=== PATIENT | female | born 1955 | race Caucasian/White ===

== ENCOUNTER 2017-12-03 13:13 | Emergency (ER) | payer OTHER ==
[~2017-12-03] VITALS: Ht 157.5 cm; Wt 70.6 kg
[~2017-12-03 13:13] MED LIST: ALBU8.5H8 INH; AMLO1TAB99 PO; CLON0.1T PO; DULO60CA7 PO; ESCI10TA10 PO; METO50TA82 PO
[2017-12-03] MEDS ORDERED: KETOROLAC 30 MG/1 ML IVPush ONE (13:30)
[2017-12-03] MEDS ORDERED: SODIUM CHLORIDE FLUSH 10ML SYR IVF ONE (13:30)
[2017-12-03] MEDS ORDERED: MORPHINE SULFATE 4 MG/ML, 1ML ONE ×2 (13:32→14:35)
[2017-12-03] MEDS ORDERED: KETOROLAC 30 MG/1 ML ONE (13:32)
[2017-12-03] MEDS: MORPHINE SULFATE 4 MG/ML, 1ML IVPush PRN ×2 (13:36→14:38)
[2017-12-03 13:54] LABS: BASOPHILS # (AUTO) 0.08 x10^3/uL (0-0.1); BASOPHILS % (AUTO) 1 % (0-1); EOSINOPHILS # (AUTO) 1.21 x10^3/uL (0-0.4); EOSINOPHILS % (AUTO) 15 % (1-7); LYMPHOCYTES % (AUTO) 31 % (22-44); MD NO; MEAN CORPUSCULAR HEMOGLOBIN 29.1 pg (27.0-34.8); MEAN CORPUSCULAR HGB CONC 33.6 g/dL (32.4-35.8); MEAN CORPUSCULAR VOLUME 86.7 fL (80-100); MEAN PLATELET VOLUME 9.1 fL (7.4-10.4); MONOCYTES # (AUTO) 0.62 x10^3/uL (0.2-0.8); MONOCYTES % (AUTO) 8 % (2-9); NEUTROPHILS % (AUTO) 46 % (42-75); PLATELET COUNT 367 x10^3/uL (130-400); RED BLOOD COUNT 5.21 x10^6/uL (3.82-5.3); RED CELL DISTRIBUTION WIDTH 14.4 % (9.6-15.2)
[2017-12-03 13:57] LABS: ALBUMIN 4.8 g/dL (3.4-5.0); ANION GAP 11 mmol/L (5-15); CALCIUM 9.6 mg/dL (8.5-10.1); CHLORIDE 106 mmol/L (98-107); CREATININE 0.92 mg/dL (0.55-1.02)
[2017-12-03 15:05] LABS: MICROSCOPIC AUTO
[2017-12-03 15:06] LABS: CULTURE INDICATED? YES
[2017-12-03 15:09] LABS: ALBUMIN 4.8 g/dL (3.4-5.0); BILIRUBIN, DIRECT 0.1 mg/dL (0.1-0.2)
[2017-12-03 15:13] LABS: BILIRUBIN,INDIRECT 0.7 mg/dL (0.0-2.0); BILIRUBIN,TOTAL 0.8 mg/dL (0.2-1.0); TOTAL PROTEIN 8.5 g/dL (6.4-8.2)
[2017-12-03] MEDS ORDERED: CYCLOBENZAPRINE 10 MG TABLET PO ONE (16:00)
[2017-12-03] MEDS ORDERED: CYCLOBENZAPRINE 10 MG TABLET ONE (16:25)
[2017-12-03 16:27] VITALS: BP 148/85
== END 2017-12-03 17:05 | disposition home or self-care (01) ==
LOC: ED 14:38
DX: M54.6 Pain in thoracic spine (principal); R10.9 Unspecified abdominal pain; I10 Essential (primary) hypertension; J45.909 Unspecified asthma, uncomplicated; Z90.49 Acquired absence of other specified parts of digestive tract; Z88.2 Allergy status to sulfonamides; Z87.442 Personal history of urinary calculi
CPT/HCPCS: 36415; 74176; 80048; 80076; 81001; 82040; 83690; 85025; 87086; 96374; 96375; 96376; 99285; J1885

== ENCOUNTER 2018-02-20 13:18 | Inpatient (IN) | payer OTHER ==
[~2018-02-20] VITALS: Ht 157.5 cm; Wt 67.1 kg
[~2018-02-20 13:18] MED LIST changes: -CLON0.1T PO; +CLON0.1T22 PO
[2018-02-20] MEDS ORDERED: FLUT1AER PO (13:42)
[2018-02-20] MEDS ORDERED: DULO30CA2 PO (13:42)
[2018-02-20] MEDS ORDERED: AMLO1CAP15 PO (13:42)
[2018-02-20] MEDS ORDERED: MORPHINE SULFATE 4 MG/ML, 1ML ONE ×2 (13:53→14:12)
[2018-02-20] MEDS: MORPHINE SULFATE 4 MG/ML, 1ML IVPush PRN ×2 (13:56→14:18)
[2018-02-20] MEDS ORDERED: SODIUM CHLORIDE FLUSH 10ML SYR IVF ONE (14:00)
[2018-02-20 14:18] LABS: BASOPHILS # (AUTO) 0.11 x10^3/uL (0-0.1); BASOPHILS % (AUTO) 2 % (0-1); EOSINOPHILS # (AUTO) 0.85 x10^3/uL (0-0.4); EOSINOPHILS % (AUTO) 15 % (1-7); LYMPHOCYTES # (AUTO) 1.74 x10^3/uL (1-3.4); LYMPHOCYTES % (AUTO) 30 % (22-44); MD NO; MEAN CORPUSCULAR HEMOGLOBIN 28.9 pg (27.0-34.8); MEAN CORPUSCULAR HGB CONC 33.6 g/dL (32.4-35.8); MEAN PLATELET VOLUME 9.1 fL (7.4-10.4); MONOCYTES # (AUTO) 0.38 x10^3/uL (0.2-0.8); MONOCYTES % (AUTO) 7 % (2-9); NEUTROPHILS # (AUTO) 2.65 x10^3/uL (1.8-6.8); NEUTROPHILS % (AUTO) 46 % (42-75); PLATELET COUNT 300 x10^3/uL (130-400); RED BLOOD COUNT 5.45 x10^6/uL (3.82-5.3); RED CELL DISTRIBUTION WIDTH 13.8 % (9.6-15.2)
[2018-02-20 14:21] LABS: INTERNATIONAL NORMALIZED RATIO 0.99 (0.93-1.1); PROTHROMBIN TIME 10.5 Seconds (9.6-11.5)
[2018-02-20 14:23] LABS: ALANINE AMINOTRANSFERASE 26 U/L (12-78); ALBUMIN 4.5 g/dL (3.4-5.0); ANION GAP 13 mmol/L (5-15); CALCIUM 9.3 mg/dL (8.5-10.1); CHLORIDE 110 mmol/L (98-107); CREATININE 0.88 mg/dL (0.55-1.02)
[2018-02-20] MEDS ORDERED: CEFTRIAXONE PMX 1GM/50ML 50 ML ONE (14:24)
[2018-02-20 14:27] LABS: ALKALINE PHOSPHATASE 84 U/L (45-117); BILIRUBIN,TOTAL 0.5 mg/dL (0.2-1.0); TOTAL PROTEIN 7.9 g/dL (6.4-8.2); TROPONIN I < 0.015 ng/mL (0.000-0.045)
[2018-02-20] MEDS ORDERED: AZITHROMYCIN 500 MG in SODIUM CHLORIDE 0.9% 250 ML IV ONE (14:30)
[2018-02-20] MEDS ORDERED: CEFTRIAXONE PMX 1GM/50ML 50 ML IV ONE (14:30)
[2018-02-20] MEDS ORDERED: morphine SULFATE 10 MG/ML, 1ML IVPush ONE (15:00)
[2018-02-20] MEDS ORDERED: NS + 20MEQ KCL 1,000 ML IV SCH (15:06)
[2018-02-20] MEDS ORDERED: LORazepam 1MG TABLET ONE (15:24)
[2018-02-20] MEDS ORDERED: LORazepam 1MG TABLET PO ONE (15:30)
[2018-02-20] MEDS ORDERED: ONDANSETRON 2MG/ML, 2ML IVPush PRN (15:30)
[2018-02-20] MEDS ORDERED: DOCUSATE 100 MG CAPSULE PO PRN (15:30)
[2018-02-20] MEDS ORDERED: POLYETHYLENE GLYCOL 17 GM PACKET PO PRN (15:30)
[2018-02-20] MEDS ORDERED: BUDESONIDE 0.5 MG/2 ML INHA HHN SCH (16:30)
[2018-02-20] MEDS ORDERED: ALBUTEROL SULFATE 2.5 MG/3 ML HHN PRN (16:30)
[2018-02-20] MEDS ORDERED: ALBUTEROL SULFATE 2.5 MG/3 ML HHN SCH (16:30)
[2018-02-20 16:52] VITALS: BP 116/74
[2018-02-20] MEDS: IBUPROFEN 600 MG TABLET PO SCH ×2 (17:26→21:05)
[2018-02-20] MEDS ORDERED: ALBUTEROL SULFATE 2.5 MG/3 ML NPPB PRN (17:30)
[2018-02-20 18:53] VITALS: BP 142/88
[2018-02-20] MEDS: BUDESONIDE 0.5 MG/2 ML INHA NPPB SCH (19:47)
[2018-02-20] MEDS: HYDROcodone/APAP 5/325 TABLET PO PRN (21:05)
[2018-02-21] MEDS: HYDROcodone/APAP 5/325 TABLET PO PRN ×5 (01:40→23:59)
[2018-02-21 01:48] VITALS: BP 108/71
[2018-02-21] MEDS: BUDESONIDE 0.5 MG/2 ML INHA NPPB SCH ×2 (06:59→20:31)
[2018-02-21 07:13] VITALS: BP 122/71
[2018-02-21] MEDS: DULOXETINE 30 MG CAPSULE.DR PO SCH (07:44)
[2018-02-21] MEDS: SENNA/DOCUSATE TABLET PO SCH (07:44)
[2018-02-21] MEDS: BENAZEPRIL 20 MG TABLET PO SCH (07:44)
[2018-02-21] MEDS: AMLODIPINE 10 MG TAB PO SCH (07:44)
[2018-02-21] MEDS: IBUPROFEN 600 MG TABLET PO SCH ×3 (07:44→19:47)
[2018-02-21] MEDS: METOPROLOL TARTRATE 50 MG TABLET PO SCH (07:48)
[2018-02-21] MEDS ORDERED: FLUTICASONE/VILANTEROL 100-25MCG/INH INH SCH (09:00)
[2018-02-21] MEDS ORDERED: OMNIPAQUE 350 MG/ML, 100ML BOTTLE ONE (10:18)
[2018-02-21] MEDS: GUAIFENESIN/COD200MG-20MG/10ML LIQUID PO PRN ×2 (12:46→22:21)
[2018-02-21 13:52] VITALS: BP 131/82
[2018-02-21] MEDS ORDERED: CEFTRIAXONE PMX 1GM/50ML 50 ML IV SCH (14:30)
[2018-02-21 14:39] LABS: TROPONIN I < 0.015 ng/mL (0.000-0.045)
[2018-02-21] MEDS ORDERED: AZITHROMYCIN 500 MG in SODIUM CHLORIDE 0.9% 250 ML IV SCH (15:30)
[2018-02-21 19:13] VITALS: BP 105/69
[2018-02-22 01:20] VITALS: BP 115/70
[2018-02-22 05:41] LABS: HCT (SEDRATE) 37.8 % (34.6-47.8)
[2018-02-22] MEDS ORDERED: CEFD300C37 PO (08:35)
[2018-02-22] MEDS: SENNA/DOCUSATE TABLET PO SCH (09:00)
[2018-02-22] MEDS ORDERED: CEFDINIR 300 MG CAPSULE PO SCH (09:00)
[2018-02-22] MEDS: METOPROLOL TARTRATE 50 MG TABLET PO SCH (09:04)
[2018-02-22] MEDS: IBUPROFEN 600 MG TABLET PO SCH (09:04)
[2018-02-22] MEDS: BENAZEPRIL 20 MG TABLET PO SCH (09:04)
[2018-02-22] MEDS: AMLODIPINE 10 MG TAB PO SCH (09:04)
[2018-02-22] MEDS: DULOXETINE 30 MG CAPSULE.DR PO SCH (09:04)
[2018-02-22 09:36] VITALS: BP 125/79
[2018-02-22] MEDS: BUDESONIDE 0.5 MG/2 ML INHA NPPB SCH (09:46)
== END 2018-02-22 12:52 | disposition home or self-care (01) | DRG 194 ==
LOC: ED 14:31 → SUATTDRO 14:54 → EDIP 15:06 → 3NE 15:58
PROVIDERS: ADMIT Family Medicine; ATTEND Internal Medicine
DX: J18.1 Lobar pneumonia, unspecified organism (principal); J45.901 Unspecified asthma with (acute) exacerbation; T17.890A Other foreign object in other parts of respiratory tract causing asphyxiation, initial encounter; F32.9 Major depressive disorder, single episode, unspecified; F41.1 Generalized anxiety disorder; I10 Essential (primary) hypertension; R09.1 Pleurisy; Z87.442 Personal history of urinary calculi; Z87.891 Personal history of nicotine dependence; Z90.49 Acquired absence of other specified parts of digestive tract; Z88.2 Allergy status to sulfonamides
CPT/HCPCS: 36415; 84145; 99285; J7613; J7626; 71045; 71275; 80053; 83605; 83880; 84443; 84484; 85025; 85610; 85651; 85730; 87040; 93005; 94640; 96374; 96375; 96376; G0378; J0456; J0696; J3480; Q9967; J2270; J7050

== ENCOUNTER 2018-03-09 18:32 | Emergency (ER) | payer OTHER ==
[~2018-03-09] VITALS: Ht 157.5 cm; Wt 66.1 kg
[~2018-03-09 18:32] MED LIST changes: +AMLO1CAP15 PO; +CEFD300C37 PO; +DULO30CA2 PO; +FLUT1AER PO
--- NOTE | 2018-03-09 19:11 | NUR ---
ASSUMED CARE OF PT FROM LOBBY AT THIS TIME.
[2018-03-09 19:28] LABS: MEAN CORPUSCULAR HEMOGLOBIN 29.5 pg (27.0-34.8); MEAN CORPUSCULAR VOLUME 86.7 fL (80-100); MEAN PLATELET VOLUME 8.9 fL (7.4-10.4); PLATELET COUNT 357 x10^3/uL (130-400); RED BLOOD COUNT 5.17 x10^6/uL (3.82-5.3); RED CELL DISTRIBUTION WIDTH 14.1 % (9.6-15.2)
[2018-03-09 19:39] LABS: ANION GAP 8 mmol/L (5-15); CALCIUM 9.3 mg/dL (8.5-10.1); CHLORIDE 105 mmol/L (98-107)
--- NOTE | 2018-03-09 19:40 | NUR ---
PT BIB P/V FOR CONTINUED COUGH AFTER BEING ADMITTED 2 WEEKS AGO FOR PNEUMONIA. PT REPORTTS SHE GOT BETTER THEN HAS PESISTENT RIGHT SIDED CP FOR LAST FEW DAYS WHEN COUGHING. PT SEEN BY DR. ASTUDILLO. WAITING FOR ORDERS.
[2018-03-09 19:47] LABS: ALANINE AMINOTRANSFERASE 29 U/L (12-78); ALKALINE PHOSPHATASE 95 U/L (45-117); BILIRUBIN,TOTAL 0.6 mg/dL (0.2-1.0); CREATININE 0.84 mg/dL (0.55-1.02); TOTAL PROTEIN 8.6 g/dL (6.4-8.2)
[2018-03-09 19:58] LABS: BASOPHILS # (AUTO) 0.06 x10^3/uL (0-0.1); BASOPHILS % (AUTO) 1 % (0-1); EOSINOPHILS % (AUTO) 21 % (1-7); LYMPHOCYTES % (AUTO) 22 % (22-44); MD SCAN; MONOCYTES # (AUTO) 0.55 x10^3/uL (0.2-0.8); MONOCYTES % (AUTO) 6 % (2-9); NEUTROPHILS # (AUTO) 4.54 x10^3/uL (1.8-6.8); NEUTROPHILS % (AUTO) 50 % (42-75)
[2018-03-09] MEDS ORDERED: KETOROLAC 30 MG/1 ML ONE (19:59)
[2018-03-09] MEDS ORDERED: KETOROLAC 30 MG/1 ML IM ONE (20:00)
--- NOTE | 2018-03-09 21:00 | NUR ---
PT REPORTS PAIN IS BETTER AFTER TORADOL.
[2018-03-09 21:10] VITALS: BP 121/89
== END 2018-03-09 21:14 | disposition home or self-care (01) ==
LOC: ED 19:35
DX: J18.9 Pneumonia, unspecified organism (principal); I10 Essential (primary) hypertension; J45.909 Unspecified asthma, uncomplicated
CPT/HCPCS: 36415; 80053; 85025; 93005; 96372; 99284; J1885

== ENCOUNTER 2018-06-18 11:51 | Emergency (ER) | payer OTHER ==
[~2018-06-18] VITALS: Ht 157.5 cm; Wt 64.0 kg
[2018-06-18 12:28] LABS: BASOPHILS # (AUTO) 0.05 x10^3/uL (0-0.1); BASOPHILS % (AUTO) 1 % (0-1); EOSINOPHILS # (AUTO) 1.11 x10^3/uL (0-0.4); EOSINOPHILS % (AUTO) 17 % (1-7); LYMPHOCYTES # (AUTO) 1.63 x10^3/uL (1-3.4); LYMPHOCYTES % (AUTO) 25 % (22-44); MD NO; MEAN CORPUSCULAR HEMOGLOBIN 29.7 pg (27.0-34.8); MEAN CORPUSCULAR VOLUME 87.5 fL (80-100); MEAN PLATELET VOLUME 8.5 fL (7.4-10.4); MONOCYTES # (AUTO) 0.43 x10^3/uL (0.2-0.8); MONOCYTES % (AUTO) 6 % (2-9); NEUTROPHILS # (AUTO) 3.47 x10^3/uL (1.8-6.8); NEUTROPHILS % (AUTO) 52 % (42-75); PLATELET COUNT 338 x10^3/uL (130-400); RED BLOOD COUNT 5.31 x10^6/uL (3.82-5.3); RED CELL DISTRIBUTION WIDTH 14.1 % (9.6-15.2)
[2018-06-18 12:33] LABS: ALBUMIN 4.8 g/dL (3.4-5.0); ANION GAP 7 mmol/L (5-15); CALCIUM 9.6 mg/dL (8.5-10.1); CHLORIDE 108 mmol/L (98-107)
[2018-06-18 12:38] LABS: CREATININE 0.76 mg/dL (0.55-1.02); TROPONIN I < 0.015 ng/mL (0.000-0.045)
--- NOTE | 2018-06-18 12:51 | NUR ---
Pt to 37 from lobby
[2018-06-18 13:05] VITALS: BP 146/87
--- NOTE | 2018-06-18 13:08 | NUR ---
PT PRESENTING TO ER FOR SOB X3 WEEKS, GENERALIZED FATIGUE AND PRODUCTIVE COUGH. CONNECTED TO ALL MONITORING, VSS. GRAHAM TO BEDSIDE FOR RECHECK AND TO UPDATE PT ON RAD AND LABS. CALL LIGHT WITHIN REACH AWAITING ADDITIONAL ORDERS
[2018-06-18] MEDS ORDERED: CEFDINIR 300 MG CAPSULE ONE (13:16)
[2018-06-18] MEDS ORDERED: AZITHROMYCIN 250 MG TABLET ONE (13:16)
[2018-06-18] MEDS ORDERED: CEFDINIR 300 MG CAPSULE PO ONE (13:30)
[2018-06-18] MEDS ORDERED: AZITHROMYCIN 500 MG TABLET PO ONE (13:30)
== END 2018-06-18 13:41 | disposition home or self-care (01) ==
LOC: ED 13:35
DX: J18.9 Pneumonia, unspecified organism (principal)
CPT/HCPCS: 36415; 71046; 80048; 82040; 84484; 85025; 93005; 99284

== ENCOUNTER 2018-11-19 22:09 | Emergency (ER) | payer OTHER ==
[~2018-11-19] VITALS: Ht 157.5 cm; Wt 63.5 kg
[~2018-11-19 22:09] MED LIST changes: -AMLO1CAP15 PO; +AMLO1CAP54 PO
--- NOTE | 2018-11-19 22:46 | NUR ---
PT STATES SOB X TODAY TRIED HOME NEBS PT WITH WHEEZES BI LAT RT CALLED RT TX IN PROCESS MED GIVEN
[2018-11-19 22:47] LABS: BASOPHILS # (AUTO) 0.01 x10^3/uL (0-0.1); BASOPHILS % (AUTO) 0 % (0-1); EOSINOPHILS # (AUTO) 1.09 x10^3/uL (0-0.4); EOSINOPHILS % (AUTO) 14 % (1-7); LYMPHOCYTES % (AUTO) 21 % (22-44); MD NO; MEAN CORPUSCULAR HEMOGLOBIN 29.8 pg (27.0-34.8); MEAN CORPUSCULAR HGB CONC 33.3 g/dL (32.4-35.8); MEAN CORPUSCULAR VOLUME 89.3 fL (80-100); MONOCYTES # (AUTO) 0.33 x10^3/uL (0.2-0.8); MONOCYTES % (AUTO) 4 % (2-9); NEUTROPHILS # (AUTO) 4.77 x10^3/uL (1.8-6.8); NEUTROPHILS % (AUTO) 61 % (42-75); PLATELET COUNT 294 x10^3/uL (130-400); RED CELL DISTRIBUTION WIDTH 13.8 % (9.6-15.2)
[2018-11-19 22:59] LABS: ANION GAP 8 mmol/L (5-15); CALCIUM 8.4 mg/dL (8.5-10.1); CHLORIDE 108 mmol/L (98-107); CREATININE 0.74 mg/dL (0.55-1.02)
[2018-11-19] MEDS ORDERED: ALBUTEROL SULFATE 2.5 MG/3 ML NPPB SCH (23:00)
[2018-11-19] MEDS ORDERED: ALBUTEROL/IPRATROPIUM 2.5MG/0.5MG, 3 ML NPPB ONE (23:00)
[2018-11-19] MEDS ORDERED: AZITHROMYCIN 500 MG TABLET PO ONE (23:00)
[2018-11-19 23:03] LABS: TROPONIN I < 0.015 ng/mL (0.000-0.045)
--- NOTE | 2018-11-19 23:16 | NUR ---
RT TREATMENT IN PROCESS
[2018-11-19] MEDS ORDERED: CEFTRIAXONE PMX 1GM/50ML 50 ML ONE (23:57)
[2018-11-20] MEDS ORDERED: CEFTRIAXONE PMX 1GM/50ML 50 ML IV ONE
--- NOTE | 2018-11-20 00:02 | NUR ---
PIV PLACED MED GIVEN PT IN NAD VSS
[2018-11-20] MEDS ORDERED: AZITHROMYCIN 250 MG TABLET ONE (00:04)
[2018-11-20] MEDS ORDERED: ONDANSETRON 2MG/ML, 2ML ONE (01:19)
[2018-11-20] MEDS ORDERED: ONDANSETRON 2MG/ML, 2ML IVPush ONE (01:30)
[2018-11-20 01:58] VITALS: BP 108/49
== END 2018-11-20 02:00 | disposition home or self-care (01) ==
LOC: ED 11-20 01:17
DX: J45.901 Unspecified asthma with (acute) exacerbation (principal); J18.1 Lobar pneumonia, unspecified organism; Z90.49 Acquired absence of other specified parts of digestive tract; I10 Essential (primary) hypertension; Z87.891 Personal history of nicotine dependence
CPT/HCPCS: 36415; 71045; 80048; 82040; 83880; 84484; 85025; 87040; 93005; 94640; 96365; 96375; 99284; J0696; J2405; J7512; J7613; J7620